=== PATIENT | female | born 1990 | race Two or more races ===

== ENCOUNTER → 2016-09-11 | Outpatient (CLI) | payer OTHER ==
--- NOTE | ~2016-09-11 | US24 ---
[facility] A Service of [facility] & [facility] RADIOLOGY TEXT RESULTS PATIENT: CHAPIN SAL LOCATION: [facility] : 88 UNIT #: [id number] AGE: [address]: Johny Doctor NOT IN SYSTEM SEX: F ORDER DR: [id number] [facility] [address] [place], [place] [address] [id number] O MR#: [id number] Acc #: [id number] NAME: CHAPIN SAL : 1990 SEX: F STUDY DATE/TIME: 09/11/2016 12:41 UNIT: [facility] ROOM: STUDY DESCRIPTION: US Breast Unilateral Referring Physician: Cassandra Maurer M.D. Ordering Physician: Cassandra Maurer M.D. Primary Care Physician: Cassandra Maurer M.D. MEDICAL IMAGING REPORT This report is preliminary unless electronic signature is present EXAM Breast ultrasound INDICATIONS Mastodynia. Right breast pain. COMPARISON STUDIES None available. FINDINGS Michael-scale and color ultrasound of the lateral and inferior right breast was performed by the sonogram and by myself. There are no ultrasound abnormalities. No evidence of malignancy. No suspicious findings. IMPRESSION Negative right breast ultrasound. BIRADS: 1 Negative. Dictated by... Brennan Andrade M.D. THIS IS AN ELECTRONICALLY VERIFIED REPORT Brennan Andrade M.D. at 09/12/2016 7:54 AM PREET/jessica TD: 09/11/2016 20:51 JOB #: [id number] MEDICAL IMAGING REPORT Page 1 of 1 COPY
== END | disposition home or self-care (01) ==
LOC: CWCC 12:18
DX: N64.4 Mastodynia (principal)
CPT/HCPCS: 76641